=== PATIENT | female | born 1985 | race Caucasian/White ===

== ENCOUNTER 2024-08-30 14:20 | Emergency (ER) | payer OTHER ==
[2024-08-30 15:13] VITALS: BMI 30.7
[2024-08-30 15:15] LABS: ABSOLUTE IMMATURE GRANULOCYTES 0.02 x10^3/uL (0.0-0.031); BASOPHILS # 0.04 x10^3/uL (0.01-0.08); EOSINOPHIL % 3.8 % (0.7-5.8); EOSINOPHILS # 0.28 x10^3/uL (0.04-0.36); HEMOGLOBIN 12.2 g/dL (11.2-15.7); MCHC 32.1 g/dl (32.2-35.5); MEAN CELL VOLUME 94.1 fl (79.4-94.8); MONOCYTE # 0.62 x10^3/uL (0.24-0.86); MONOCYTE % 8.5 % (4.7-12.5); PLATELET COUNT 262 x10^3/uL (182-369); RDW 12.7 % (12.2-17.1)
[2024-08-30 15:30] LABS: POTASSIUM 4.3 mmol/L (3.5-5.1)
[2024-08-30 15:32] LABS: ALBUMIN 3.8 g/dl (3.4-5.0); BLOOD UREA NITROGEN 8.3 mg/dL (7-18)
[2024-08-30 15:33] LABS: MAGNESIUM 2.4 mg/dL (1.8-2.4)
[2024-08-30 15:36] LABS: CREATININE 0.7 mg/dL (0.55-1.3)
[2024-08-30 15:37] LABS: BILIRUBIN,TOTAL 0.4 mg/dL (0.2-1); TOT PROT 7.3 g/dl (6.4-8.2)
[2024-08-30] MEDS ORDERED: ACETAMINOPHEN INJECTION 100 ML ONE (16:05)
[2024-08-30] MEDS ORDERED: METOCLOPRAMIDE HCL INJECTION 10 MG/2 ML VIAL ONE (16:05)
[2024-08-30] MEDS: ACETAMINOPHEN 1000 MG/100 ML BAG IVPB ONE (16:18)
[2024-08-30] MEDS: SODIUM CHLORIDE 1,000 ML IV STA (16:18)
[2024-08-30] MEDS: METOCLOPRAMIDE HCL INJECTION 10 MG/2 ML VIAL IVPUSH ONE (16:18)
[2024-08-30 16:43] LABS: HCG,QUALITATIVE URINE Negative
[2024-08-30 16:46] LABS: EPI CELLS >36 /uL (0-25.1); HYALINE CASTS 2 /uL (0-3.1); PH,URINE 5.5 (5.0-8.0); URINE APPEARANCE CLOUDY; URINE BACTERIA >9,000 /uL (0-1359); URINE BILIRUBIN NEGATIVE (NEGATIVE); URINE COLOR YELLOW; URINE GLUCOSE (UA) NEGATIVE (NEGATIVE); URINE KETONE NEGATIVE (NEGATIVE); URINE LEUK ESTERASE TRACE (NEGATIVE); URINE NITRITE POSITIVE (NEGATIVE); URINE PROTEIN NEGATIVE (NEGATIVE); URINE UROBILINOGEN 0.2 mg/dL (0.2-1.0); URINE WBC 73 /uL (0-25.8)
[2024-08-30 17:03] LABS: URINE RBC 137.8 /uL (0-23.9)
[2024-08-30 17:39] LABS: URINE AMPHETAMINES NEGATIVE (NEGATIVE); URINE BARBITURATES NEGATIVE (NEGATIVE)
[2024-08-30 17:41] LABS: COCAINE, UR NEGATIVE (NEGATIVE); METHADONE, UR NEGATIVE (NEGATIVE); OPIATES, URI NEGATIVE (NEGATIVE); PHENCYCLIDINE,URINE NEGATIVE (NEGATIVE); URINE BENZODIAZEPINES NEGATIVE (NEGATIVE)
[2024-08-30 18:59] VITALS: BP 131/85; PULSE 61; RESP 18; TEMP 98.5
[2024-08-30] MEDS ORDERED: CEFTRIAXONE 1 GM/50 ML BAG ONE (19:05)
== END 2024-08-30 20:19 | disposition home or self-care (01) ==
LOC: JER 14:20
PROC: 3E033NZ Introduction of Analgesics, Hypnotics, Sedatives into Peripheral Vein, Percutaneous Approach (ICD-10-PCS; principal; 2024-08-30)
PROC: 3E03329 Introduction of Other Anti-infective into Peripheral Vein, Percutaneous Approach (ICD-10-PCS; 2024-08-30)
PROC: 3E033GC Introduction of Other Therapeutic Substance into Peripheral Vein, Percutaneous Approach (ICD-10-PCS; 2024-08-30)
PROC: 3E0337Z Introduction of Electrolytic and Water Balance Substance into Peripheral Vein, Percutaneous Approach (ICD-10-PCS; 2024-08-30)
DX: R40.4 Transient alteration of awareness (principal); R51.9 Headache, unspecified; R23.2 Flushing; R55 Syncope and collapse; N39.0 Urinary tract infection, site not specified; Z63.8 Other specified problems related to primary support group
CPT/HCPCS: 36415; 70450-TC; 80053; 80307; 81003; 82550; 83735; 84484; 84703; 85025; 87086; 93005; 93010; 99285-25

== ENCOUNTER 2024-11-28 05:17 | Emergency (ER) | payer OTHER ==
[2024-11-28 05:22] VITALS: TEMP 97.8; BMI 30.9
[2024-11-28] MEDS ORDERED: DEXAMETHASONE SOD PHOSPHATE 4 MG/1 ML VIAL ONE (06:11)
[2024-11-28] MEDS ORDERED: ACETAMINOPHEN INJECTION 100 ML ONE (06:12)
[2024-11-28] MEDS: DEXAMETHASONE SOD PHOSPHATE 4 MG/1 ML VIAL IVPUSH ONE (06:25)
[2024-11-28] MEDS: ACETAMINOPHEN 1000 MG/100 ML BAG IVPB ONE (06:25)
[2024-11-28] MEDS: SODIUM CHLORIDE FOR INHALATION 3 ML VIAL.NEB IH ONE (06:25)
[2024-11-28 06:50] LABS: INR 1.17 (0.83-1.09); PROTHROMBIN TIME (PATIENT) 12.8 SEC (9.7-13.0)
[2024-11-28] MEDS ORDERED: FAMOTIDINE 20 MG/50 ML IVPB 20 MG/50 ML MG IVPB ONE (06:51)
[2024-11-28] MEDS ORDERED: MAG HYDROX/AL HYDROX/SIMETH 30 ML UNIT-DOSE CUP ONE (06:51)
[2024-11-28 06:53] LABS: ACTIVATED PTT 32.6 SECONDS (25.2-36.5)
[2024-11-28] MEDS: MAG HYDROX/AL HYDROX/SIMETH 30 ML UNIT-DOSE CUP PO ONE (07:00)
[2024-11-28] MEDS: FAMOTIDINE 20 MG/50 ML IVPB 20 MG/50 ML MG IVPB ONE (07:00)
[2024-11-28 07:02] LABS: MCHC 33.1 g/dl (32.2-35.5); MEAN CELL VOLUME 92.4 fl (79.4-94.8); MEAN PLT VOLUME 8.7 fl (9.4-12.3); RDW 13.4 % (12.2-17.1)
[2024-11-28 07:49] LABS: HCV DIAGNOSTIC IN-HOUSE W/RFLX NON-REACTIVE (NONREACTIVE); HIV INTERPRETATION NEGATIVE (NEGATIVE)
[2024-11-28 07:52] LABS: GLUCOSE,RANDOM 114 mg/dL (74-106); TOT PROT 7.9 g/dl (6.4-8.2)
[2024-11-28 07:53] LABS: CO2 22 mmol/L (21-32)
[2024-11-28 07:55] LABS: ALK PHOS 101 U/L (40-150)
[2024-11-28 07:57] LABS: SGOT/AST 23 U/L (5-34); SGPT/ALT 9 U/L (0-55)
[2024-11-28 07:58] LABS: CREATININE 0.77 mg/dL (0.55-1.3)
[2024-11-28 08:44] VITALS: BP 128/71; PULSE 62; RESP 16
== END 2024-11-28 08:45 | disposition home or self-care (01) ==
LOC: JER 05:17
PROC: 3E033GC Introduction of Other Therapeutic Substance into Peripheral Vein, Percutaneous Approach (ICD-10-PCS; principal; 2024-11-28)
PROC: 3E033GC Introduction of Other Therapeutic Substance into Peripheral Vein, Percutaneous Approach (ICD-10-PCS; 2024-11-28)
PROC: 3E033NZ Introduction of Analgesics, Hypnotics, Sedatives into Peripheral Vein, Percutaneous Approach (ICD-10-PCS; 2024-11-28)
DX: R07.0 Pain in throat (principal); R06.02 Shortness of breath; K92.0 Hematemesis
CPT/HCPCS: 36415; 70360-TC-FY; 71045-TC-FY; 80053; 82550; 83690; 83735; 84484; 84703; 85027; 85610; 85730; 86803; 87389; 93005; 93010; 99285-25